=== PATIENT | female | born 1930 | race Caucasian/White ===

== ENCOUNTER 2017-12-25 10:59 | Outpatient (CLI) | payer MEDICARE ==
[2017-12-25 13:35] LABS: PTT 21.8 SEC (22.9-36.1); Prothrombin Time 13.5 SEC (12.0-14.7)
--- NOTE | 2017-12-25 20:36 | EKG ---
Test Reason : Blood Pressure : / mmHG Vent. Rate : 077 BPM Atrial Rate : 077 BPM P-R Int : 182 ms QRS Dur : 084 ms QT Int : 380 ms P-R-T Axes : 063 046 044 degrees QTc Int : 430 ms Normal sinus rhythm Normal ECG No previous ECGs available Confirmed by OLLIE ENGLISH, DR. Chacon ([id number]) on 12/25/2017 8:36:09 PM Referred By: FERNANDO Confirmed By:DR. Ines LEVIN MD
== END 2017-12-25 11:00 | disposition home or self-care (01) ==
LOC: LABBT 10:59
PROVIDERS: ATTEND Surgery
DX: Z01.818 Encounter for other preprocedural examination (principal); M47.12 Other spondylosis with myelopathy, cervical region
CPT/HCPCS: 85610; 85730; 93005; 93010

== ENCOUNTER 2017-12-31 07:14 | Inpatient (IN) | payer MEDICARE, MEDICAID ==
[2017-12-31] MEDS ORDERED: Thrombin 5000 UNITS/5 ML VIAL ONE (07:46)
[2017-12-31] MEDS ORDERED: Bacitracin Zinc Ointment 30 gm TUBE ONE (07:46)
[2017-12-31] MEDS ORDERED: Sodium Chloride 0.9% 10 ML ONE (07:46)
[2017-12-31] MEDS ORDERED: Clindamycin/D5W 900 mg/50 ml Premix Bag ONE (07:47)
[2017-12-31] MEDS ORDERED: Levofloxacin 500 mg/D5W 100 ml Premix Bag ONE (07:47)
[2017-12-31] MEDS ORDERED: Fentanyl 100 MCG/2 ML VIAL ONE ×4 (07:53→15:03)
[2017-12-31] MEDS ORDERED: Ondansetron HCl/PF 4 MG/2 ML Vial ONE (10:39)
[2017-12-31] MEDS ORDERED: Glycopyrrolate 0.2 MG/ML 5 ML SYRINGE ONE (11:47)
[2017-12-31] MEDS ORDERED: ePHEDrine/0.9% NaCl/PF SYRINGE 50 mg/10 ml ONE (11:47)
[2017-12-31] MEDS ORDERED: PHENYLEPHRINE-NS 100 MCG/ML 10 ML SYRINGE ONE (11:47)
[2017-12-31] MEDS ORDERED: Lidocaine 1% PF 5 ML VIAL ONE (11:47)
[2017-12-31] MEDS ORDERED: PROPOFOL 200 MG/20 ML VIAL ONE (11:47)
--- NOTE | 2017-12-31 11:47 | OP ---
DATE OF PROCEDURE: 12/31/2017 OR: OR #12 WOUND TYPE: Type 1 wound. SURGEON: Amador Ceja M.D. BACK END DEVELOPER: Jayson Pro PA-C. 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 PROCEDURE: C6-C7, C7-T1 laminectomies, partial facetectomies, foraminotomies, C6, C7, T1 bilaterally . DESCRIPTION OF PROCEDURE: After informed consent was obtained from the patient, the patient was brou ght to OR. Proper patient pause and identification was carried out. The Claudio swathi was secured to the skull following general anesthetic induction. The patient positioned prone with cervical spi ne kept in neutral position. All appropriate points were padded. We identified, linear scarlett that al lowed for an approach to the C6, C7 and T1 segments. This region was sterilely cleansed, prepared, a nd draped. Proper patient pause and identification was carried out. The wound was then opened with a combination of sharp, monopolar and blunt dissection. C6, C7 and T1 segments were exposed. Locali zation film confirmed our area of interest. We then performed a C6-C7 and T1 laminectomies, partial facetectomies and foraminotomies with excellent decompression of the spinal cord and the nerve roots. There was no spinal fluid leak. Copious irrigation occurred throughout and we maximize hemostasis. The wound was then closed in anatomic layers. The patient then emerged from anesthesia.
[2017-12-31] MEDS ORDERED: Fleet Enema 133 ML BOT PR PRN (12:11)
[2017-12-31] MEDS ORDERED: Mag-Al 1200 mg/1200 mg/30 ML UDCUP PO PRN (12:11)
[2017-12-31] MEDS ORDERED: Milk Of Magnesia 30 ML UDCUP PO PRN (12:11)
[2017-12-31] MEDS ORDERED: Bisacodyl 10 MG SUPP PR PRN (12:11)
[2017-12-31] MEDS ORDERED: Promethazine HCl 25 MG/ML VIAL IM PRN (12:11)
[2017-12-31] MEDS ORDERED: Preparation H HC 1% Cream 26 GM TUBE TOP PRN (15:26)
[2017-12-31] MEDS ORDERED: Nystatin Powder 15 GM BOT TOP PRN (15:26)
[2017-12-31] MEDS ORDERED: HumaLOG 300 UNITS/3 ML VIAL SC PRN ×3 (15:26→20:16)
[2017-12-31] MEDS ORDERED: Senokot S 8.6-50 MG TAB PO PRN (15:26)
[2017-12-31] MEDS: Sodium Chloride 0.9% 1,000 ML IV SCH (15:56)
[2017-12-31] MEDS: Clindamycin/D5W 900 MG in Premix Bag 1 BAG IVPB SCH (17:19)
[2017-12-31] MEDS: Morphine 4 MG/ML VIAL SLOW IVP PRN ×3 (17:48→22:26)
[2017-12-31] MEDS ORDERED: Dextrose 50% Abboject 50 ML SYRINGE SLOW IVP PRN (20:14)
[2017-12-31] MEDS ORDERED: Dextrose 5% in Water 1,000 ML IV PRN (20:14)
[2017-12-31] MEDS: Melatonin 3 MG TAB PO SCH (20:59)
[2017-12-31] MEDS: Ascorbic Acid 500 mg Chewable Tablet PO SCH (20:59)
[2017-12-31] MEDS: levETIRAcetam 500 MG TAB PO SCH (20:59)
[2017-12-31] MEDS: Famotidine 20 MG TAB PO SCH (20:59)
[2017-12-31] MEDS: Atorvastatin Calcium 40 MG TAB PO SCH (20:59)
[2017-12-31] MEDS: Insulin Glargine 10 UNITS in Pre-Filled Syringe SC SCH (21:28)
--- NOTE | 2017-12-31 21:52 | CON ---
DATE OF CONSULTATION: 12/31/2017 PRIMARY CARE PHYSICIAN: Dr. Elan Story. PRIMARY TEAM: Neurosurgery, Dr. Ceja. REASON FOR CONSULTATION: Medical management. HISTORY OF PRESENT ILLNESS: This is an 87-year-old white female with a history of progressive weakne ss of her lower extremities along with some pain and loss of bowel or bladder continence of the last month, diagnosed with severe spinal cord compression and neurological decline of her C-T spine. She came in for a C6-C7 and C7-T1 laminectomy is now postoperative. The patient still complains of some pain in shoulders from where she is lying now in discomfort from the neck brace. Otherwise without a ny specific complaints. PAST MEDICAL HISTORY: 1. Diabetes mellitus type 2, on Lantus. 2. Hyperlipidemia. 3. Hypothyroidism. 4. Previous cerebrovascular accident x3, without residual effects. 5. Previous DVT in 2014, not on anticoagulation now. 6. Osteoarthritis. 7. 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 8. Possible history of seizures. 9. Diabetic neuropathy. 10. Thrombocytopenia PAST SURGICAL HISTORY: 1. Appendectomy at age 17. 2. Hysterectomy in 196. 3. Tonsillectomy/Adenoidectomy. 4. Hemorrhoidectomy. 5. Cervical diskectomy and fusion many years ago. 6. Lumbar laminectomy in 2013. SOCIAL HISTORY: The patient has a past history of cigarette smoking, but quit in the 1960s. No alco hol or illicit drugs. She currently lives in a senior care due to inability to move. FAMILY HISTORY: Positive for coronary artery disease in a brother and leukemia in a brother and aneu rysm in the brain. ALLERGIES: 1. ASPIRIN. 2. BETA BLOCKERS. 3. PENICILLIN. 4. VITAMIN D3. 5. LASIX. CURRENT MEDICATIONS: 1. Humalog 2 units subcutaneously t.i.d. with meals. 2. Acetaminophen as needed. 3. Clopidogrel 75 mg daily. 4. Milk of Magnesia as needed. 5. MiraLax as needed. 6. Tramadol as needed. 7. Vitamin C 500 mg twice a day. 8. Lipitor 40 mg at night. 9. Gabapentin 300 mg 3 times a day. 10. Preparation H cream applied rectally as needed. 11. Lantus 10 units subcu at night. 12. Keppra 500 mg twice a day. 13. Levothyroxine 112 mcg daily. 14. Tradjenta 5 mg daily. 15. Melatonin 3 mg at night. 16. Nystatin as needed. 17. Senna Plus tablet 1 twice a day as needed. REVIEW OF SYSTEMS: CONSTITUTIONAL: No fevers, no chills. EYES: No double vision or blurred vision. ENT: No congestion, drainage or sore throat. CARDIOVASCULAR: No chest pain, no palpitations or racing heart. PULMONARY: No coughing, wheezing, or shortness of breath. GASTROINTESTINAL: No abdominal pain, no nausea or vomiting. She has pretty chronic constipation, bu t none for the last week or so. She has had fecal incontinence for the last month. GENITOURINARY: See a urinary incontinence for last month. No dysuria or hematuria. MUSCULOSKELETAL: See HPI. SKIN: No rashes or other lesions she has noted. NEUROLOGIC: She has numbness in bilateral hands and bilateral feet from her diabetic neuropathy. Bi lateral lower extremity numbness has gotten worse since the progressive weakness. PHYSICAL EXAMINATION: VITAL SIGNS: Blood pressure 105/52, pulse 91, respirations 15, O2 sat 100% on room air, and temperat ure 97.7. GENERAL: This is a well-developed, obese, elderly white female, who appears very frail and hypersens itive causes any sort of movement in her body seems to cause pain at this point. Otherwise, without distress. HEENT: Pupils equal, round, and reactive to light. Oropharynx clear without lesions, erythema or ex udate. She is missing her dentures and has no teeth. Has dry mucous membranes. NECK: With C-collar in place. HEART: Regular rate and rhythm, no murmurs, rubs, or gallops. LUNGS: Clear to auscultation bilaterally, no wheezes, crackles or rhonchi. ABDOMEN: Soft, nontender to palpation, normoactive bowel sounds, no hepatosplenomegaly, or other mas ses. EXTREMITIES: She has no clubbing, cyanosis, or edema. She is able to move her upper and lower extre mities, but has very significant weakness in her lower extremities. SKIN: No rashes or lesions noted. NEUROLOGIC: She has decreased sensation to bilateral fingertips into her legs below the knee, but sh herber does also has some hyperesthesia to deeper touch in the feet and ankles. This causes her significa nt pain. LABORATORY DATA: No labs currently available. She does have a glucose of 114 and then the next one was 153. Recent platelet count of 125. ASSESSMENT: 1. 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 2. Diabetes mellitus type 2. We will resume home insulin and put her on a insulin sliding scale wit h fingerstick blood sugars before every meals and at bedtime. 3. Hyperlipidemia. Continue home medications. 4. Previous cerebrovascular accident. We will continue home medications except for Plavix. We will need to hold that until determined by Neurosurgery. 5. Hypothyroidism. Resume levothyroxine. 6. Gastrointestinal prophylaxis. We will put patient on Pepcid twice a day. 7. Deep venous thrombosis prophylaxis, put the patient on sequential compression devices on bed. We will hold on any other anticoagulants until cleared by Neurosurgery. 8. CODE STATUS: I discussed with the patient, she is a FULL CODE. Should she be incapacitated, her medical power of title attorney is her son, Julito Mccall.
[2018-01-01] MEDS: Clindamycin/D5W 900 MG in Premix Bag 1 BAG IVPB SCH ×3 (01:26→17:16)
[2018-01-01] MEDS: Morphine 4 MG/ML VIAL SLOW IVP PRN ×2 (01:27→17:16)
[2018-01-01] MEDS: Gabapentin 300 MG CAP PO PRN (01:29)
[2018-01-01] MEDS: HYDROcodone/Acetaminophen 7.5/325 mg Tablet PO PRN ×3 (02:19→20:30)
[2018-01-01] MEDS: tiZANidine HCl 4 MG TAB PO PRN ×2 (02:19→14:51)
[2018-01-01] MEDS: Levothyroxine Sodium 112 MCG TAB PO SCH (06:20)
[2018-01-01] MEDS: Ascorbic Acid 500 mg Chewable Tablet PO SCH ×2 (08:53→19:39)
[2018-01-01] MEDS: levETIRAcetam 500 MG TAB PO SCH ×2 (08:53→19:40)
[2018-01-01] MEDS: Alogliptin 25 MG TAB PO SCH (08:53)
[2018-01-01] MEDS: Famotidine 20 MG TAB PO SCH (08:54)
--- NOTE | 2018-01-01 09:10 | PRG ---
DATE OF SERVICE: 01/01/2018 SUBJECTIVE: Ms. Mccall is postoperative day #1 from C6-T1 laminectomy. She is doing well this morn ing with biggest issue as expected to be in pain control. She moves her upper extremity. She states it does hurt. She does state that she has improved light touch sensation in her lower extremities a nd moves all extremities to command. Frankly I am very pleased with how she is doing. We will begin to initiate therapy today.
[2018-01-01] MEDS: Sodium Chloride 0.9% 1,000 ML IV SCH (14:54)
[2018-01-01] MEDS: Atorvastatin Calcium 40 MG TAB PO SCH (19:39)
[2018-01-01] MEDS: Insulin Glargine 10 UNITS in Pre-Filled Syringe SC SCH (19:46)
[2018-01-01] MEDS: Melatonin 3 MG TAB PO SCH (19:47)
[2018-01-02] MEDS: HYDROcodone/Acetaminophen 7.5/325 mg Tablet PO PRN ×2 (00:05→05:44)
[2018-01-02] MEDS: Clindamycin/D5W 900 MG in Premix Bag 1 BAG IVPB SCH ×3 (00:23→20:13)
[2018-01-02 02:41] VITALS: BMI 30.9
[2018-01-02] MEDS: tiZANidine HCl 4 MG TAB PO PRN ×3 (02:45→17:34)
[2018-01-02] MEDS: Gabapentin 300 MG CAP PO PRN ×2 (02:45→11:01)
[2018-01-02] MEDS: Levothyroxine Sodium 112 MCG TAB PO SCH (05:44)
--- NOTE | 2018-01-02 08:00 | PRG ---
DATE OF SERVICE: 01/02/2018 Ms. Mccall is on postoperative day #2, having undergone C6-C7 and T1 posterior cervical laminectomie s. The patient continues to deal with some muscle spasm at the incision site, but overall states nadya t her pain has improved today as compared to yesterday. She has refused to work with therapies. OBJECTIVE: Her exam is limited by effort, but she is able to raise her arms to her head according to nursing. She is also able to hyperextend from the elbows to noting that she has good function of th e C5 nerve root. She also has good strength in bilateral plantar and dorsiflexion; however, states t hat her knee pain limits movement of the legs. I have ordered an ultrasound of the bilateral lower e xtremities and we will check back on the results of this, but otherwise, will get her to a regular r oom on the surgical floor. We will also attempt to touch base with her family today. Please call wi th any changes or questions in patient's neurologic status. Otherwise, the patient is doing well, re ally needs to work with therapy. We have counseled her on her motivation as such.
[2018-01-02] MEDS: levETIRAcetam 500 MG TAB PO SCH ×2 (09:29→22:19)
[2018-01-02] MEDS: Alogliptin 25 MG TAB PO SCH (09:29)
[2018-01-02] MEDS: Sodium Chloride 0.9% 1,000 ML IV SCH (09:29)
[2018-01-02] MEDS: Famotidine 20 MG TAB PO SCH (09:29)
[2018-01-02] MEDS: Ascorbic Acid 500 mg Chewable Tablet PO SCH ×2 (09:29→22:19)
[2018-01-02] MEDS: traMADol HCl 50 MG TAB PO PRN ×2 (11:01→17:34)
--- NOTE | 2018-01-02 11:04 | ULT ---
BILATERAL LOWER EXTREMITY VENOUS DOPPLER ULTRASOUND: HISTORY: Recent postop. Impaired mobility due to recent surgery. Bilateral lower extremity pain. TECHNIQUE: Willis-scale ultrasound with color-flow and spectral Doppler imaging of the deep venous systems of the lower extremities was performed bilaterally. FINDINGS: There is good flow, compression, and augmentation noted in the common femoral, femoral, deep femoral, popliteal, posterior tibial, and greater saphenous veins, on both sides. IMPRESSION: No evidence of deep venous thrombosis in either lower extremity. POS: OFF
[2018-01-02] MEDS: Acetaminophen 325 MG TAB PO PRN ×2 (12:46→16:35)
[2018-01-02] MEDS: Melatonin 3 MG TAB PO SCH (22:18)
[2018-01-02] MEDS: Atorvastatin Calcium 40 MG TAB PO SCH (22:19)
[2018-01-02] MEDS: Insulin Glargine 10 UNITS in Pre-Filled Syringe SC SCH (22:22)
[2018-01-03] MEDS: traMADol HCl 50 MG TAB PO PRN ×2 (00:15→11:18)
[2018-01-03] MEDS: Clindamycin/D5W 900 MG in Premix Bag 1 BAG IVPB SCH ×3 (00:17→19:34)
[2018-01-03] MEDS: tiZANidine HCl 4 MG TAB PO PRN ×2 (00:17→11:18)
[2018-01-03] MEDS: Sodium Chloride 0.9% 1,000 ML IV SCH (04:16)
[2018-01-03] MEDS: Levothyroxine Sodium 112 MCG TAB PO SCH (05:19)
[2018-01-03] MEDS: Gabapentin 300 MG CAP PO PRN (05:20)
[2018-01-03] MEDS: Famotidine 20 MG TAB PO SCH (07:51)
[2018-01-03] MEDS: levETIRAcetam 500 MG TAB PO SCH ×2 (07:51→21:21)
[2018-01-03] MEDS: Ascorbic Acid 500 mg Chewable Tablet PO SCH ×2 (07:51→21:29)
[2018-01-03] MEDS: Alogliptin 25 MG TAB PO SCH (07:51)
--- NOTE | 2018-01-03 09:45 | PRG ---
DATE OF SERVICE: 01/03/2018 Ms. Mccall is slowly mobilizing. I have had her focus on not the pain and muscle spasm she is havin g, but rather the progress she is making. She lifts both extremities partially antigravity. She jus t frankly needs to move and I have told her this. We are continuing to work on this. We will start Lovenox.
[2018-01-03] MEDS: HYDROcodone/Acetaminophen 7.5/325 mg Tablet PO PRN (14:05)
--- NOTE | 2018-01-03 15:06 | PDOC.PN ---
- Subjective Encounter Start Date: 01/03/18 Encounter Start Time: 15:04 Patient is a little confused. She believes there are cats outside the room. - Objective Vital Signs & Weight: Vital Signs (12 hours) Temp Pulse Resp BP BP Pulse Ox 01/03/18 11:10 98.1 F 91 14 128/66 92 L 01/03/18 08:00 98.4 F 86 20 94 L 01/03/18 07:22 98.4 F 86 20 137/79 94 L 01/03/18 04:00 97.9 F 75 20 134/71 95 Weight Admit Weight 215 lb 6.266 oz Weight 216 lb Most Recent Monitor Data Heart Rate from ECG 79 NIBP 109/35 NIBP BP-Mean 50 Respiration from ECG 12 SpO2 94 I&O: 01/02/18 01/03/18 01/04/18 06:59 06:59 06:59 Intake Total 1718 2020 Output Total 1060 985 Balance 658 1035 Additional Labs: Accuchecks 01/03/18 01/03/18 01/02/18 11:11 05:11 21:10 POC Glucose 163 H 146 H 144 H 01/02/18 17:31 POC Glucose 122 H Phys Exam - Physical Examination HEENT: PERRLA Collar in place. Respiratory: no wheezing, no rales, no rhonchi, clear to auscultation bilateral Cardiovascular: RRR, no significant murmur Gastrointestinal: soft, non-tender, no distention Musculoskeletal: no edema moves UE's spontaneously bilaterally. Dx/Plan (1) Diabetes mellitus Code(s): E11.9 - TYPE 2 DIABETES MELLITUS WITHOUT COMPLICATIONS Status: Acute Qualifiers: Diabetes mellitus type: type 2 Plan: Blood sugars have been doing well. Continue current meds/monitoring. (2) Confusion Code(s): R41.0 - DISORIENTATION, UNSPECIFIED Status: Acute Plan: Appears to have mild case of hospital delirium. Not agitated. Patient has apparently be reluctant to engage with therapies. She has been strongly encouraged to get up and moving. This will likely improve her mental state as well. Recommend redirecting and limiting pain meds as possible. No evidence of underlying infection, but will check a urine. (3) Seizure disorder Code(s): G40.909 - EPILEPSY, UNSP, NOT INTRACTABLE, WITHOUT STATUS EPILEPTICUS Status: Acute Plan: Stable on chronic meds. No change. - Plan * .
[2018-01-03 16:36] LABS: #Eosinphils 1.8 thou/uL (0.0-0.7); #Lymphocytes 0.6 thou/uL (1.20-3.40); #Monocytes 0.7 thou/uL (0.11-0.59); #Neutrophils 9.1 thou/uL (1.40-6.50); %Eosinophils 14.9 % (0.0-10.0); %Lymphocytes 4.8 % (21.0-51.0); %Monocytes 5.8 % (0.0-10.0); %Neutrophils 74.5 % (42.0-75.0); Mean Corpuscular HGB CONC 33.1 g/dL (32.0-36.0); Mean Corpuscular Hemoglobin 30.2 pg (27.0-31.0); Mean Corpuscular Volume 91.2 fl (81.0-99.0); Mean Platelet Volume 10.7 fL (7.4-10.4); PLT Morphology Comment Appears Decreased; Platelet Count 112 thou/uL (130-400); RBC Distribution Width 13.8 % (11.5-14.5); RBC Morphology Normal; Red Blood Cell (RBC) Count 3.64 mill/uL (4.20-5.40); White Blood Cell (WBC) Count 12.2 thou/uL (4.8-10.8)
[2018-01-03] MEDS: Atorvastatin Calcium 40 MG TAB PO SCH (21:21)
[2018-01-03] MEDS: Lorazepam 1 MG TAB PO PRN (21:21)
[2018-01-03] MEDS: Enoxaparin Sodium 40 MG/0.4 ML SYRINGE SC SCH (21:22)
[2018-01-03] MEDS: Insulin Glargine 10 UNITS in Pre-Filled Syringe SC SCH (21:29)
[2018-01-03] MEDS: Melatonin 3 MG TAB PO SCH (21:29)
[2018-01-04] MEDS: Acetaminophen 325 MG TAB PO PRN (00:26)
[2018-01-04] MEDS: Gabapentin 300 MG CAP PO PRN (00:27)
[2018-01-04] MEDS: Sodium Chloride 0.9% 1,000 ML IV SCH ×3 (00:29→19:57)
[2018-01-04] MEDS: Clindamycin/D5W 900 MG in Premix Bag 1 BAG IVPB SCH (00:29)
--- NOTE | 2018-01-04 01:35 | PDOC.EVN ---
Event Note - Event Note Event Note: Called for patient with heart rate in the 140s-150s with EKG showing SVT. patient asymptomatic. She is allergic to beta blockers and calcium channel blockers. Only change to in-hospital regimen is addition of PRN lorazepam today. PLan Transfet to telemetry floor Carotid massage/valsava maneuvers. BMP qand trend troponin EKG pRN IV digoxin for HR > 135. Will reassess patient.
[2018-01-04] MEDS ORDERED: Digoxin 0.5 MG/2 ML AMP SLOW IVP SCH (01:45)
[2018-01-04 02:18] LABS: Bilirubin Negative (Negative); Blood, Urine Negative (Negative); Clarity CLEAR (Clear); Glucose, Urine (Dipstick) Negative (Negative); Leukocyte Negative (Negative); Nitrite Negative (Negative); Protein, Urine (Dipstick) Negative (Neg-Trace); Specific Gravity, Urine 1.006 (1.002-1.036); Urobilinogen 0.2 mg/dL (0.2-1.0); pH, Urine 6.5 (5.0-9.0)
[2018-01-04 03:02] LABS: Anion Gap 10 mmol/L (10-20); BUN (Urea Nitrogen) 13 mg/dL (9.8-20.1); Calc. Creatinine Clearance 77 mL/min (70-130); Calcium 8.5 mg/dL (7.8-10.44); Carbon Dioxide 25 mmol/L (23-31); Chloride 104 mmol/L (98-107); Estimated GFR-MDRD 64; Glucose 187 mg/dL (83-110); Potassium 3.7 mmol/L (3.5-5.1); Sodium 135 mmol/L (136-145)
[2018-01-04 03:06] LABS: Troponin I 0.011 ng/mL (< 0.028)
[2018-01-04] MEDS: Levothyroxine Sodium 112 MCG TAB PO SCH (06:26)
[2018-01-04] MEDS ORDERED: diphenhydrAMINE 25 MG CAP PO PRN (07:19)
[2018-01-04 08:06] LABS: Troponin I Less than 0.010 ng/mL (< 0.028)
[2018-01-04] MEDS: Alogliptin 25 MG TAB PO SCH (09:24)
[2018-01-04] MEDS: Famotidine 20 MG TAB PO SCH (09:24)
[2018-01-04] MEDS: Ascorbic Acid 500 mg Chewable Tablet PO SCH (09:24)
[2018-01-04] MEDS: HYDROcodone/Acetaminophen 7.5/325 mg Tablet PO PRN ×2 (09:26→19:41)
[2018-01-04] MEDS: tiZANidine HCl 4 MG TAB PO PRN ×2 (09:27→17:04)
[2018-01-04] MEDS: levETIRAcetam 500 MG TAB PO SCH (09:27)
[2018-01-04] MEDS ORDERED: Loratadine 10 MG TAB PO PRN (11:04)
--- NOTE | 2018-01-04 12:29 | PDOC.PN ---
- Subjective Encounter Start Date: 01/04/18 Encounter Start Time: 11:00 Patient seen and examined for med mngt. No new complaints. Overnight events noted. Developed gen macular papular rash on chest/abd/back. - Objective MAR Reviewed: Yes Vital Signs & Weight: Vital Signs (12 hours) Temp Pulse Resp BP BP Pulse Ox 01/04/18 08:45 98.0 F 94 18 01/04/18 08:40 98.0 F 94 18 138/62 94 L 01/04/18 04:00 98.0 F 126 H 20 121/75 96 01/04/18 03:35 98 01/04/18 03:20 98.0 F 126 H 20 96 01/04/18 01:00 99.7 F H 150 H 19 135/52 L 94 L Weight Admit Weight 215 lb 6.266 oz Weight 214 lb 1.6 oz Most Recent Monitor Data Heart Rate from ECG 79 NIBP 109/35 NIBP BP-Mean 50 Respiration from ECG 12 SpO2 94 I&O: 01/03/18 01/04/18 01/05/18 06:59 06:59 06:59 Intake Total 2020 945 Output Total 985 2250 Balance 1035 -1305 Result Diagrams: 01/03/18 15:31 01/04/18 02:12 Additional Labs: Accuchecks 01/04/18 01/04/18 01/03/18 10:43 05:45 21:26 POC Glucose 152 H 138 H 117 H 01/03/18 15:04 POC Glucose 150 H EKG Reviewed by me: Yes (Tele SR) Phys Exam - Physical Examination Constitutional: NAD (somnolent - answers appropriately) Respiratory: no wheezing, no rhonchi Cardiovascular: RRR, no rub Gastrointestinal: soft, no distention Musculoskeletal: no edema Neurological: non-focal, moves all 4 limbs Dx/Plan (1) SVT (supraventricular tachycardia) Code(s): I47.1 - SUPRAVENTRICULAR TACHYCARDIA Status: Acute Comment: Will avoid BB/Cardizem due to allergy (2) Rash/skin eruption Code(s): R21 - RASH AND OTHER NONSPECIFIC SKIN ERUPTION Status: Acute Comment: probably medication induced. Atbx dced (3) DM2 (diabetes mellitus, type 2) Status: Chronic (4) Hypothyroidism Code(s): E03.9 - HYPOTHYROIDISM, UNSPECIFIED Status: Chronic (5) Obesity (BMI 30.0-34.9) Code(s): E66.9 - OBESITY, UNSPECIFIED Status: Chronic - Plan DVT proph w/lovenox, DVT proph w/SCDs Cont pulse ox with Neurochecks -: Add Loratadine daily -: Cont current meds as below -: DC Keppra - patient does not take this med at home -: Cont sliding scale with Lantus, Cont close monitoring, AM labs Review of Systems - Review of Systems Respiratory: negative: Cough, Dry, Shortness of Breath, Hemoptysis, SOB with Excertion, Pleuritic Pain, Sputum, Wheezing Cardiovascular: negative: chest pain, palpitations, orthopnea, paroxysmal nocturnal dyspnea, edema, light headedness, other - Medications/Allergies Allergies/Adverse Reactions: Allergies Allergy/AdvReac Type Severity Reaction Status Date / Time aspirin Allergy Verified 12/25/17 11:53 Beta-Blockers Allergy Verified 12/25/17 11:53 (Beta-Adrenergic Bloc Calcium Channel Blocking Allergy Verified 12/25/17 11:53 Agents-Dih ergocalciferol (vitamin D2) Allergy Verified 12/25/17 11:53 [From Vitamin D2] furosemide Allergy Verified 12/25/17 11:53 iodine Allergy Verified 12/25/17 11:53 metformin Allergy Verified 12/25/17 11:53 Penicillins Allergy Verified 12/25/17 11:53 Medications: Current Medications Acetaminophen (Tylenol) 650 mg PO Q4H PRN PRN Reason: Headache/Fever or Pain Last Admin: 01/04/18 00:26 Dose: 650 mg Hydrocodone Bitart/Acetaminophen ([place] 7.5/325) 1 tab PO Q4H PRN PRN Reason: Moderate Pain (4-6) Last Admin: 01/04/18 09:26 Dose: 1 tab Al Hydroxide/Mg Hydroxide (Maalox) 30 ml PO Q4H PRN PRN Reason: Indigestion Alogliptin Benzoate (Alogliptin) 25 mg PO DAILY [facility] Last Admin: 01/04/18 09:24 Dose: 25 mg Atorvastatin Calcium (Lipitor) 40 mg PO HS [facility] Last Admin: 01/03/18 21:21 Dose: 40 mg Bisacodyl (Dulcolax) 10 mg DC Q12H PRN PRN Reason: Constipation Dextrose/Water (Dextrose 50%) 25 gm SLOW IVP PRN PRN PRN Reason: Hypoglycemia Diphenhydramine HCl (Benadryl) 25 mg PO Q4H PRN PRN Reason: Itching Last Admin: 01/04/18 09:24 Dose: 25 mg Enoxaparin Sodium (Lovenox) 40 mg SC 2100 [facility] Last Admin: 01/03/18 21:22 Dose: 40 mg Famotidine (Pepcid) 20 mg PO DAILY [facility] Last Admin: 01/04/18 09:24 Dose: 20 mg Gabapentin (Neurontin) 300 mg PO TID PRN PRN Reason: Pain Last Admin: 01/04/18 00:27 Dose: 300 mg Glucagon (Glucagon) 1 mg IM PRN PRN PRN Reason: Hypoglycemia Hydrocortisone Sodium Succinate (Preparation H Hc Cream) 0 gm TOP Q6HR PRN PRN Reason: Hemorrhoids Sodium Chloride (Normal Saline 0.9%) 1,000 mls @ 50 mls/hr IV .Q20H [facility] Last Admin: 01/04/18 04:00 Dose: 1,000 mls Insulin Glargine 10 units/ (Miscellaneous Medication) 0.1 mls @ 0 mls/hr [facility] Last Admin: 01/03/18 21:29 Dose: 0.1 mls Dextrose/Water (D5w) 1,000 mls @ 0 mls/hr IV .Q0M PRN; As Directed PRN Reason: Hypoglycemia Insulin Human Lispro (Humalog) 0 units SC .MILD SLIDING SCALE PRN PRN Reason: Mild Correctional Scale Insulin Human Lispro (Humalog) 0 units SC .BEDTIME SLIDING SC PRN PRN Reason: Bedtime Correctional Scale Levothyroxine Sodium (Synthroid) 112 mcg PO 0600 [facility] Last Admin: 01/04/18 06:26 Dose: 112 mcg Loratadine (Claritin) 10 mg PO DAILY [facility] Loratadine (Claritin) 10 mg PO 1400 PRN PRN Reason: Allergies Lorazepam (Ativan) 1 mg PO Q4H PRN PRN Reason: .AGITATION Last Admin: 01/03/18 21:21 Dose: 1 mg Magnesium Hydroxide (Milk Of Magnesium) 30 ml PO Q12H PRN PRN Reason: Constipation Melatonin (Melatonin) [address] [facility] Last Admin: 01/03/18 21:29 Dose: Not Given Morphine Sulfate (Morphine) 2 mg SLOW IVP Q1H PRN PRN Reason: Severe Pain (7-10) Last Admin: 01/01/18 17:16 Dose: 2 mg Nystatin (Mycostatin Powder) 0 gm TOP DAILYPRN PRN PRN Reason: Topical Irritations Promethazine HCl (Phenergan) 12.5 mg IM Q4H PRN PRN Reason: Nausea/Vomiting Senna/Docusate Sodium (Senokot S) 1 tab PO BID PRN PRN Reason: Constipation Last Admin: 01/04/18 09:26 Dose: 1 tab Sodium Biphosphate/Sodium Phosphate (Fleet Enema) 133 ml DC ONE PRN PRN Reason: Constipation Stop: 01/05/18 12:12 Sodium Chloride (Flush - Normal Saline) 10 ml IVF PRN PRN PRN Reason: Saline Flush Tizanidine HCl (Zanaflex) 4 mg PO Q6H PRN PRN Reason: Muscle Spasm Last Admin: 01/04/18 09:27 Dose: 4 mg Tramadol HCl (Ultram) 50 mg PO Q6H PRN PRN Reason: Mild Pain (1-3) Last Admin: 01/03/18 11:18 Dose: 50 mg
[2018-01-04 14:09] LABS: Troponin I 0.012 ng/mL (< 0.028)
[2018-01-04] MEDS: Melatonin 3 MG TAB PO SCH (19:40)
[2018-01-04] MEDS: Senokot S 8.6-50 MG TAB PO SCH (19:41)
[2018-01-04] MEDS: Atorvastatin Calcium 40 MG TAB PO SCH (19:42)
[2018-01-04] MEDS: Enoxaparin Sodium 40 MG/0.4 ML SYRINGE SC SCH (19:42)
[2018-01-04] MEDS: Morphine 4 MG/ML VIAL SLOW IVP PRN (19:52)
[2018-01-04] MEDS: Insulin Glargine 10 UNITS in Pre-Filled Syringe SC SCH (20:19)
[2018-01-04] MEDS: traMADol HCl 50 MG TAB PO PRN (23:47)
--- NOTE | 2018-01-05 00:12 | PRG ---
DATE OF SERVICE: 01/04/2018 Ms. Mccall is currently sedated, having just received Benadryl for her rash. She was moved to the t elemetry unit overnight for a run of SVT. Per the Medical Services, things seemed to be stable at th is time. From a neurological perspective, she has been stable and there are no plans for any major c hanges in her care. Discussed at length with her .
[2018-01-05] MEDS: Morphine 4 MG/ML VIAL SLOW IVP PRN ×4 (03:42→23:24)
[2018-01-05] MEDS: Levothyroxine Sodium 112 MCG TAB PO SCH (05:17)
[2018-01-05] MEDS: HYDROcodone/Acetaminophen 7.5/325 mg Tablet PO PRN ×2 (05:17→19:55)
[2018-01-05 05:50] LABS: #Eosinphils 1.3 thou/uL (0.0-0.7); #Lymphocytes 0.8 thou/uL (1.20-3.40); #Monocytes 0.5 thou/uL (0.11-0.59); #Neutrophils 6.8 thou/uL (1.40-6.50); %Basophils 0.2 % (0.0-1.0); %Eosinophils 14.1 % (0.0-10.0); %Lymphocytes 8.4 % (21.0-51.0); %Monocytes 5.4 % (0.0-10.0); %Neutrophils 71.8 % (42.0-75.0); Hemoglobin 12.9 g/dL (12.0-16.0); Mean Corpuscular Volume 96.7 fl (81.0-99.0); Mean Platelet Volume 8.8 fL (7.4-10.4); Platelet Count 192 thou/uL (130-400); Red Blood Cell (RBC) Count 4.46 mill/uL (4.20-5.40); White Blood Cell (WBC) Count 9.5 thou/uL (4.8-10.8)
[2018-01-05 05:58] LABS: Albumin 2.8 g/dL (3.4-4.8); Anion Gap 10 mmol/L (10-20); BUN (Urea Nitrogen) 17 mg/dL (9.8-20.1); BUN/Creatinine Ratio 20.48; Calc. Creatinine Clearance 73 mL/min (70-130); Calcium 8.7 mg/dL (7.8-10.44); Carbon Dioxide 24 mmol/L (23-31); Chloride 107 mmol/L (98-107); Estimated GFR-MDRD 65; Glucose 117 mg/dL (83-110); Magnesium 1.9 mg/dL (1.6-2.6); Phosphorus 2.1 mg/dL (2.3-4.7); Sodium 137 mmol/L (136-145)
[2018-01-05] MEDS: Alogliptin 25 MG TAB PO SCH (09:20)
[2018-01-05] MEDS: Famotidine 20 MG TAB PO SCH (09:20)
[2018-01-05] MEDS: Loratadine 10 MG TAB PO SCH (09:20)
[2018-01-05] MEDS: Polyethylene Glycol 3350 17 GM Packet PO SCH (09:21)
[2018-01-05] MEDS: Senokot S 8.6-50 MG TAB PO SCH ×2 (09:21→19:55)
--- NOTE | 2018-01-05 15:25 | PDOC.PN ---
- Subjective Encounter Start Date: 01/05/18 Encounter Start Time: 09:20 Patient seen and examined for med mngt. Gen rash improving - no itching/ drainage. No new complaints. No overnight events - Objective MAR Reviewed: Yes Vital Signs & Weight: Vital Signs (12 hours) Temp Pulse Pulse Pulse Resp BP BP 01/05/18 12:00 99.2 F 94 16 01/05/18 08:29 99 91 136/66 132/60 01/05/18 08:00 99 F 95 19 01/05/18 07:52 99 F 95 19 01/05/18 07:50 01/05/18 04:00 98.0 F 85 16 BP Pulse Ox Pulse Ox Pulse Ox 01/05/18 12:00 124/62 01/05/18 08:29 96 95 01/05/18 08:00 96 01/05/18 07:52 132/66 96 01/05/18 07:50 95 01/05/18 04:00 136/62 96 Weight Admit Weight 215 lb 6.266 oz Weight 218 lb Most Recent Monitor Data Heart Rate from ECG 79 NIBP 109/35 NIBP BP-Mean 50 Respiration from ECG 12 SpO2 94 I&O: 01/04/18 01/05/18 01/06/18 06:59 06:59 06:59 Intake Total 945 1026 300 Output Total 2250 500 Balance -1305 526 300 Result Diagrams: 01/05/18 05:17 01/05/18 05:32 Additional Labs: Accuchecks 01/05/18 01/05/18 01/04/18 10:57 05:35 20:12 POC Glucose 133 H 107 155 H 01/04/18 16:27 POC Glucose 96 Phys Exam - Physical Examination Constitutional: NAD Respiratory: no wheezing, no rhonchi Cardiovascular: RRR, no rub Gastrointestinal: soft, non-tender, positive bowel sounds Psychiatric: A&O x 3 Skin: normal turgor Deviation from normal: Gen rash - improving Dx/Plan (1) SVT (supraventricular tachycardia) Code(s): I47.1 - SUPRAVENTRICULAR TACHYCARDIA Status: Acute Comment: No new episode. Not on BB/Cardizem due to allergy (2) Rash/skin eruption Code(s): R21 - RASH AND OTHER NONSPECIFIC SKIN ERUPTION Status: Acute Comment: probably medication induced. 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 negative: Neck Pain, Shoulder Pain, Arm Pain, Hand Pain, Leg Pain, Foot Pain - Medications/Allergies Allergies/Adverse Reactions: Allergies Allergy/AdvReac Type Severity Reaction Status Date / Time aspirin Allergy Verified 12/25/17 11:53 Beta-Blockers Allergy Verified 12/25/17 11:53 (Beta-Adrenergic Bloc Calcium Channel Blocking Allergy Verified 12/25/17 11:53 Agents-Dih ergocalciferol (vitamin D2) Allergy Verified 12/25/17 11:53 [From Vitamin D2] furosemide Allergy Verified 12/25/17 11:53 iodine Allergy Verified 12/25/17 11:53 metformin Allergy Verified 12/25/17 11:53 Penicillins Allergy Verified 12/25/17 11:53 Medications: Current Medications Acetaminophen (Tylenol) 650 mg PO Q4H PRN PRN Reason: Headache/Fever or Pain Last Admin: 01/04/18 00:26 Dose: 650 mg Hydrocodone Bitart/Acetaminophen ([place] 7.5/325) 1 tab PO Q4H PRN PRN Reason: Moderate Pain (4-6) Last Admin: 01/05/18 05:17 Dose: 1 tab Al Hydroxide/Mg Hydroxide (Maalox) 30 ml PO Q4H PRN PRN Reason: Indigestion Alogliptin Benzoate (Alogliptin) 25 mg PO DAILY [facility] [place] Last Admin: 01/05/18 09:20 Dose: 25 mg Atorvastatin Calcium (Lipitor) 40 mg PO HS [facility] [place] Last Admin: 01/04/18 19:42 Dose: 40 mg Bisacodyl (Dulcolax) 10 mg ND Q12H PRN PRN Reason: Constipation Last Admin: 01/04/18 15:36 Dose: 10 mg Dextrose/Water (Dextrose 50%) 25 gm SLOW IVP PRN PRN PRN Reason: Hypoglycemia Diphenhydramine HCl (Benadryl) 25 mg PO Q4H PRN PRN Reason: Itching Last Admin: 01/04/18 09:24 Dose: 25 mg Enoxaparin Sodium (Lovenox) 40 mg SC 2100 [facility] [place] Last Admin: 01/04/18 19:42 Dose: 40 mg Famotidine (Pepcid) 20 mg PO DAILY [facility] [place] Last Admin: 01/05/18 09:20 Dose: 20 mg Gabapentin (Neurontin) 300 mg PO TID PRN PRN Reason: Pain Last Admin: 01/04/18 00:27 Dose: 300 mg Glucagon (Glucagon) 1 mg IM PRN PRN PRN Reason: Hypoglycemia Hydrocortisone Sodium Succinate (Preparation H Hc Cream) 0 gm TOP Q6HR PRN PRN Reason: Hemorrhoids Sodium Chloride (Normal Saline 0.9%) 1,000 mls @ 50 mls/hr IV .Q20H [facility] [place] Last Admin: 01/04/18 19:57 Dose: 1,000 mls Insulin Glargine 10 units/ (Miscellaneous Medication) 0.1 mls @ 0 mls/hr SC [facility] Last Admin: 01/04/18 20:19 Dose: 0.1 mls Dextrose/Water (D5w) 1,000 mls @ 0 mls/hr IV .Q0M PRN; As Directed PRN Reason: Hypoglycemia Insulin Human Lispro (Humalog) 0 units SC .MILD SLIDING SCALE PRN PRN Reason: Mild Correctional Scale Insulin Human Lispro (Humalog) 0 units SC .BEDTIME SLIDING SC PRN PRN Reason: Bedtime Correctional Scale Levothyroxine Sodium (Synthroid) 112 mcg PO 0600 [facility] [place] Last Admin: 01/05/18 05:17 Dose: 112 mcg Loratadine (Claritin) 10 mg PO DAILY [facility] [place] Last Admin: 01/05/18 09:20 Dose: 10 mg Lorazepam (Ativan) 1 mg PO Q4H PRN PRN Reason: .AGITATION Last Admin: 01/03/18 21:21 Dose: 1 mg Magnesium Hydroxide (Milk Of Magnesium) 30 ml PO Q12H PRN PRN Reason: Constipation Last Admin: 01/04/18 17:04 Dose: 30 ml Melatonin (Melatonin) 3 mg PO HS [facility] [place] Last Admin: 01/04/18 19:40 Dose: 3 mg Morphine Sulfate (Morphine) 2 mg SLOW IVP Q1H PRN PRN Reason: Severe Pain (7-10) Last Admin: 01/05/18 05:20 Dose: 2 mg Nystatin (Mycostatin Powder) 0 gm TOP DAILYPRN PRN PRN Reason: Topical Irritations Polyethylene Glycol (Miralax) 17 gm PO DAILY [facility] [place] Last Admin: 01/05/18 09:21 Dose: 17 gm Promethazine HCl (Phenergan) 12.5 mg IM Q4H PRN PRN Reason: Nausea/Vomiting Senna/Docusate Sodium (Senokot S) 1 tab PO BID [facility] [place] Last Admin: 01/05/18 09:21 Dose: 1 tab Sodium Chloride (Flush - Normal Saline) 10 ml IVF PRN PRN PRN Reason: Saline Flush Tizanidine HCl (Zanaflex) 4 mg PO Q6H PRN PRN Reason: Muscle Spasm Last Admin: 01/04/18 17:04 Dose: 4 mg Tramadol HCl (Ultram) 50 mg PO Q6H PRN PRN Reason: Mild Pain (1-3) Last Admin: 01/04/18 23:47 Dose: 50 mg
[2018-01-05] MEDS: tiZANidine HCl 4 MG TAB PO PRN (15:28)
[2018-01-05] MEDS ORDERED: Hydrocortisone 1% Cream 1.5 GM Packet TOP SCH (15:30)
[2018-01-05] MEDS: Sodium Chloride 0.9% 1,000 ML IV SCH (16:18)
[2018-01-05] MEDS: Gabapentin 300 MG CAP PO PRN (19:54)
[2018-01-05] MEDS: Atorvastatin Calcium 40 MG TAB PO SCH (19:55)
[2018-01-05] MEDS: Lorazepam 1 MG TAB PO PRN (19:55)
[2018-01-05] MEDS: Melatonin 3 MG TAB PO SCH (19:55)
[2018-01-05] MEDS: Hydrocortisone 1% Cream 1.5 GM Packet TOP SCH (19:56)
[2018-01-05] MEDS: Enoxaparin Sodium 40 MG/0.4 ML SYRINGE SC SCH (19:56)
[2018-01-05] MEDS: traMADol HCl 50 MG TAB PO PRN (23:22)
[2018-01-05] MEDS: Insulin Glargine 10 UNITS in Pre-Filled Syringe SC SCH (23:24)
[2018-01-06 05:57] LABS: #Eosinphils 1.5 thou/uL (0.0-0.7); #Monocytes 0.7 thou/uL (0.11-0.59); #Neutrophils 7.3 thou/uL (1.40-6.50); %Eosinophils 14.2 % (0.0-10.0); %Lymphocytes 9.9 % (21.0-51.0); %Neutrophils 68.9 % (42.0-75.0); Hemoglobin 12.3 g/dL (12.0-16.0); Mean Corpuscular HGB CONC 31.4 g/dL (32.0-36.0); Mean Corpuscular Hemoglobin 28.6 pg (27.0-31.0); Mean Corpuscular Volume 91.1 fl (81.0-99.0); Mean Platelet Volume 11.3 fL (7.4-10.4); Platelet Count 90 thou/uL (130-400); RBC Distribution Width 13.7 % (11.5-14.5); White Blood Cell (WBC) Count 10.6 thou/uL (4.8-10.8)
[2018-01-06 05:59] LABS: Anion Gap 11 mmol/L (10-20); BUN (Urea Nitrogen) 17 mg/dL (9.8-20.1); Calc. Creatinine Clearance 77 mL/min (70-130); Calcium 8.6 mg/dL (7.8-10.44); Carbon Dioxide 24 mmol/L (23-31); Chloride 105 mmol/L (98-107); Estimated GFR-MDRD 69; Glucose 106 mg/dL (83-110); Phosphorus 2.5 mg/dL (2.3-4.7); Potassium 3.9 mmol/L (3.5-5.1); Sodium 136 mmol/L (136-145)
[2018-01-06] MEDS: Levothyroxine Sodium 112 MCG TAB PO SCH (06:23)
[2018-01-06] MEDS: HYDROcodone/Acetaminophen 7.5/325 mg Tablet PO PRN ×2 (06:23→17:44)
--- NOTE | 2018-01-06 08:37 | PDOC.EVN ---
Event Note - Event Note Event Note: Hold Lovenox due to Platelets of 90k
[2018-01-06] MEDS: Loratadine 10 MG TAB PO SCH (10:01)
[2018-01-06] MEDS: Alogliptin 25 MG TAB PO SCH (10:01)
[2018-01-06] MEDS: Polyethylene Glycol 3350 17 GM Packet PO SCH (10:01)
[2018-01-06] MEDS: Senokot S 8.6-50 MG TAB PO SCH (10:01)
[2018-01-06] MEDS: Hydrocortisone 1% Cream 1.5 GM Packet TOP SCH ×2 (10:02→15:31)
[2018-01-06] MEDS: Famotidine 20 MG TAB PO SCH (10:02)
[2018-01-06] MEDS: Sodium Chloride 0.9% 1,000 ML IV SCH (12:21)
[2018-01-06] MEDS: Morphine 4 MG/ML VIAL SLOW IVP PRN (13:03)
--- NOTE | 2018-01-06 13:06 | PRG ---
DATE OF SERVICE: 01/06/2018 Ms. Mccall is now postoperative day #6, having undergone posterior cervical laminectomies. She cont inues to have limited mobility secondary to myelopathy. She has been treated by Medicine for a full body rash and has a PICC line in. She is also on telemetry and moved from the surgical floor to the telemetry unit. She remains at neurologic baseline with good plantar and dorsiflexion bilaterally, b ut limited movement into the legs. She is able to touch her face on the right and is able to extend both elbows, though again is slower to move the left upper extremity due to recent PICC line. The ma in issue now is disposition for the patient. I have strongly encouraged her to continue to work with therapies as this will be the main factor in helping her get back to her snf facility. Case management has also been involved to see if the patient would qualify for inpatient rehab, but a t this time I have again encouraged her strongly to continue with her therapies so that she can get s tronger.
[2018-01-06] MEDS: traMADol HCl 50 MG TAB PO PRN (14:38)
[2018-01-06 16:33] VITALS: BP 168/72; TEMP 99.2
--- NOTE | 2018-01-06 23:09 | PDOC.PN ---
- Subjective Encounter Start Date: 01/06/18 Encounter Start Time: 08:30 Patient seen and examined for med mgnt. Back pain improving. No new complaints. No overnight events - Objective MAR Reviewed: Yes Vital Signs & Weight: Vital Signs (12 hours) Temp Pulse Resp BP Pulse Ox 01/06/18 16:00 99.2 F 93 16 168/72 H 98 01/06/18 11:20 98.4 F 90 15 140/65 94 L Weight Admit Weight 215 lb 6.266 oz Weight 219 lb Most Recent Monitor Data Heart Rate from ECG 79 NIBP 109/35 NIBP BP-Mean 50 Respiration from ECG 12 SpO2 94 I&O: 01/05/18 01/06/18 01/07/18 06:59 06:59 06:59 Intake Total 1026 1097 Output Total 500 350 Balance 526 747 Result Diagrams: 01/06/18 05:07 01/06/18 05:07 Additional Labs: Accuchecks 01/06/18 01/06/18 01/06/18 16:38 11:30 06:26 POC Glucose 91 104 94 EKG Reviewed by me: Yes (Tele SR) Phys Exam - Physical Examination Constitutional: NAD Respiratory: no wheezing, no rhonchi Cardiovascular: RRR, no rub Gastrointestinal: soft, non-tender, positive bowel sounds Musculoskeletal: no edema Dx/Plan (1) SVT (supraventricular tachycardia) Code(s): I47.1 - SUPRAVENTRICULAR TACHYCARDIA Status: Acute Comment: No new episode. Not on BB/Cardizem due to allergy (2) Rash/skin eruption Code(s): R21 - RASH AND OTHER NONSPECIFIC SKIN ERUPTION Status: Acute Comment: probably medication induced. 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 (6) Obesity (BMI 30.0-34.9) Code(s): E66.9 - OBESITY, UNSPECIFIED Status: Chronic (7) Thrombocytopenia Code(s): D69.6 - THROMBOCYTOPENIA, UNSPECIFIED Status: Acute Comment: ?etio - Plan DVT proph w/SCDs Cont to monitor -: Cont current meds as below -: Monitor Platelets -: AM labs Review of Systems - Review of Systems Respiratory: negative: Cough, Dry, Shortness of Breath, Hemoptysis, SOB with Excertion, Pleuritic Pain, Sputum, Wheezing Cardiovascular: negative: chest pain, palpitations, orthopnea, paroxysmal nocturnal dyspnea, edema, light headedness, other - Medications/Allergies Allergies/Adverse Reactions: Allergies Allergy/AdvReac Type Severity Reaction Status Date / Time aspirin Allergy Verified 12/25/17 11:53 Beta-Blockers Allergy Verified 12/25/17 11:53 (Beta-Adrenergic Bloc Calcium Channel Blocking Allergy Verified 12/25/17 11:53 Agents-Dih ergocalciferol (vitamin D2) Allergy Verified 12/25/17 11:53 [From Vitamin D2] furosemide Allergy Verified 12/25/17 11:53 iodine Allergy Verified 12/25/17 11:53 metformin Allergy Verified 12/25/17 11:53 Penicillins Allergy Verified 12/25/17 11:53
--- NOTE | 2018-01-07 18:26 | EKG ---
Test Reason : Blood Pressure : / mmHG Vent. Rate : 150 BPM Atrial Rate : 187 BPM P-R Int : 000 ms QRS Dur : 070 ms QT Int : 332 ms P-R-T Axes : 000 043 044 degrees QTc Int : 524 ms Supraventricular tachycardia Low voltage QRS Borderline ECG When compared with ECG of 25-DEC-2017 13:08, Vent. rate has increased BY 73 BPM Confirmed by Teresa ARNOLD ([id number]) on 01/07/2018 6:26:21 PM Referred By: FERNANDO Confirmed By:Teresa ARNOLD
== END 2018-01-06 19:27 | DRG 519 ==
LOC: SDC 07:14 → CCU 12:08 → SURG B 01-02 10:02 → 2NO 01-04 03:07
PROVIDERS: ADMIT Surgery; ATTEND Surgery
PROC: 00NW0ZZ Release Cervical Spinal Cord, Open Approach (ICD-10-PCS; principal; 2017-12-31)
PROC: 00NX0ZZ Release Thoracic Spinal Cord, Open Approach (ICD-10-PCS; 2017-12-31)
PROC: 01N10ZZ Release Cervical Nerve, Open Approach (ICD-10-PCS; 2017-12-31)
PROC: 01N80ZZ Release Thoracic Nerve, Open Approach (ICD-10-PCS; 2017-12-31)
DX: M47.12 Other spondylosis with myelopathy, cervical region (principal); I47.1 Supraventricular tachycardia; F05 Delirium due to known physiological condition; M48.02 Spinal stenosis, cervical region; M48.061 Spinal stenosis, lumbar region without neurogenic claudication; L27.0 Generalized skin eruption due to drugs and medicaments taken internally; T36.95XA Adverse effect of unspecified systemic antibiotic, initial encounter; Y92.239 Unspecified place in hospital as the place of occurrence of the external cause; E66.9 Obesity, unspecified; E11.40 Type 2 diabetes mellitus with diabetic neuropathy, unspecified; E11.22 Type 2 diabetes mellitus with diabetic chronic kidney disease; N18.2 Chronic kidney disease, stage 2 (mild); M62.81 Muscle weakness (generalized); E83.39 Other disorders of phosphorus metabolism; G40.909 Epilepsy, unspecified, not intractable, without status epilepticus; D69.6 Thrombocytopenia, unspecified; E78.5 Hyperlipidemia, unspecified; Z82.49 Family history of ischemic heart disease and other diseases of the circulatory system; Z80.6 Family history of leukemia; Z86.718 Personal history of other venous thrombosis and embolism; Z86.73 Personal history of transient ischemic attack (TIA), and cerebral infarction without residual deficits; Z88.6 Allergy status to analgesic agent; Z88.0 Allergy status to penicillin; Z91.09 Other allergy status, other than to drugs and biological substances; Z87.891 Personal history of nicotine dependence; Z79.4 Long term (current) use of insulin; Z90.49 Acquired absence of other specified parts of digestive tract; Z90.710 Acquired absence of both cervix and uterus; Z98.1 Arthrodesis status; Z79.899 Other long term (current) drug therapy
CPT/HCPCS: 36415; 36416; 76001; 80048; 80069; 81003; 83735; 84100; 84484; 85025; 93005; 93010; 93970; 94760; A4216; G8978-GP-CM; G8978-GP-CN; G8979-GP-CK; G8987-GO-CN; G8988-GO-CM; J1160; J1650; J1956; J2001; J2270; J2405; J2704; J3010; J3370; J3490; L0174